=== PATIENT | male | born 1950 | race Caucasian/White ===

== ENCOUNTER → 2024-02-20 07:13 | Outpatient (REF) | payer MEDICARE, OTHER, SELFPAY | LOC: PAVMRI 07:13 | PROVIDERS: ATTENDING PHYSICIAN Orthopaedic Surgery; FAMILY PHYSICIAN Internal Medicine | DX: M25.561 Pain in right knee (principal) | CPT/HCPCS: 73721 ==

== ENCOUNTER → 2024-03-30 09:53 | Outpatient (REF) | payer MEDICARE, OTHER, SELFPAY | LOC: RAD 09:53 | PROVIDERS: ATTENDING PHYSICIAN Internal Medicine | DX: R19.00 Intra-abdominal and pelvic swelling, mass and lump, unspecified site (principal); M79.89 Other specified soft tissue disorders; I87.2 Venous insufficiency (chronic) (peripheral) | CPT/HCPCS: 74177; Q9967 ==

== ENCOUNTER → 2024-12-30 00:52 | Emergency (ER) | payer MEDICARE, OTHER, SELFPAY ==
[2024-12-30 01:06] VITALS: BP 143/75
[2024-12-30] MEDS: TYLENOL 1000 MG PO (01:22)
[2024-12-30 01:40] LABS: Hematocrit 38.1 % (39.0-52.0); Hemoglobin 12.8 g/dL (13.0-18.0); Mean Corp Hgb Conc. 33.6 g/dL (33.0-37.0); Mean Corpuscular Volume 86.6 fL (80.0-94.0); Nucleated Red Blood Cells % 0 % (-); Platelet Count 173 10^3/uL (130-400); Red Cell Dist. Width 12.8 % (11.5-14.5)
[2024-12-30 01:52] LABS: COVID-19 Antigen Positive (Negative)
[2024-12-30 02:00] LABS: ALT (SGPT) 46 U/L (0-50); AST (SGOT) 58 U/L (17-59); Albumin 4.8 g/dl (3.5-5.0); Alkaline Phosphatase 70 U/L (38-126); Blood Urea Nitrogen 12 mg/dl (9-20); Calcium 9.5 mg/dl (8.4-10.2); Carbon Dioxide 25 mmol/L (22-30); Chloride 102 mmol/L (98-107); Glucose 118 mg/dl (70-99); Potassium 4.3 mmol/L (3.5-5.1); Sodium 135 mmol/L (135-145); Total Protein 7.6 g/dl (6.3-8.2); eGFR > 60.00
[2024-12-30 05:48] VITALS: BMI 39.2
[2024-12-30 05:55] VITALS: BP 118/70
--- NOTE | 2024-12-30 06:22 | ED.GENMED ---
History of Present Illness
General
Chief Complaint: Breathing Problem
Source: patient
Exam Limitations: none
Time Seen by Provider: 12/30/24 06:18
Nursing documentation reviewed up to this point in time: agreed with
History of Present Illness
History of Present Illness:
The patient is a 74-year-old man with a past medical history of elevated cholesterol and aortic valve replacement who complains of sinus congestion and cough since yesterday. Patient reports he is able to drink and eat, however. He reports mild
shortness of breath but no chest pain. Patient was unaware he had a fever. He denies sore throat. Patient reports mild headache and bodyaches. Patient given Tylenol prior to my evaluation and states he feels much better. He denies leg pain and
leg swelling.
Past History
Past History
ED Past Medical History: Hypercholesterolemia
ED Past Surgical History: Cardiac
Social History
Tobacco: Non-smoker
Alcohol: Other
Drug: None
Personal:
Living: with family
Employment: Other
Family History
Family History: Other
Review of Systems
Review of Systems
Allergies reviewed?: Yes
All Other Systems: ROS reviewed and negative except as documented in HPI and ROS
Constitutional: Reports fatigue
EENT: Reports other (Sinus and nasal congestion)
Respiratory: Reports cough and trouble breathing
Cardiac: Reports no symptoms
ABD/GI: Reports no symptoms
: Reports no symptoms
Musculoskeletal: Reports muscle stiffness
Skin: Reports no symptoms
Neurological: Reports headache
Endocrine: Reports no symptoms
Hematologic/Lymphatic: Reports no symptoms
Psychiatric: Reports no symptoms
Phy Exam
Physical Exam
Physical Exam:
Physical Exam
General: no apparent distress, not acutely ill, patient appears nontoxic. Is conversational and smiling
Neck: supple. no meningeal signs. normal psoterior pharynx
Heart: s1/s2 regular rate and rhythm, no murmur. equal radial pulses.
Lungs: no acute respiratory distress. clear bilaterally. Speaks in full sentences. Breathing comfortably
Abdomen: normal bowel sounds. not tender. no CVAT
Neuro: alert and oriented. no focal neurological deficits
Skin: no rash
Psychiatric: well kept. interactive and cooperative
Extremities: no edema. no calf tenderness. negative homans. good distal pulses
Scores
Heart Failure Risk
Heart Failure Risk Score: Not Applicable
Sepsis
Sepsis Screening
Sepsis Assessment: Sepsis Ruled Out
Sepsis Screen
Sepsis Screen: Sepsis Ruled Out
Date: 12/30/24
Time: 06:45
Course
Orders/Labs/Results
Orders:
Orders
12/30/24 01:11
Electrocardiogram (*1) Urgent
Reason for Study: Other
Other Reason for Exam: shortness of breath
EKG- Treatment ONCE
CR Chest - 2 Views Urgent
Comment:
Reason For Exam: respiratory distress
12/30/24 01:20
Acetaminophen [Tylenol] 1,000 mg PO NOW STA
12/30/24 01:22
COVID-19 Antigen Urgent
Source: Nasal Swab
12/30/24 01:28
Complete Blood Count/With Diff Urgent
Comprehensive Metabolic Panel Urgent
Lactic Acid Urgent
Blood Culture Urgent
STEFFANIE Source: Blood/Venous
Specimen Description:
Abnormal Lab Results
12/30/24 12/30/24
01:22 01:28
RBC 4.40 L 10^6/uL
(4.70-6.10)
Hgb 12.8 L g/dL
(13.0-18.0)
Hct 38.1 L %
(39.0-52.0)
Absolute Lymphs (auto) 0.8 L 10^3/uL
(1.2-3.4)
Absolute Monos (auto) 1.4 H 10^3/uL
(0.1-0.6)
Lymphocytes % 8.7 L %
(20.5-51.1)
Monocytes % 16.3 H %
(1.7-9.3)
Glucose 118 H mg/dl
(70-99)
SARS-CoV-2 Antigen Positive A
(Negative)
12/30/24 01:28
12/30/24 01:28
Vital Signs
Initial and Last Documented VS:
Initial Vital Signs
Temp Pulse Resp BP Pulse Ox
102 F H 94 26 143/75 94
12/30/24 01:06 12/30/24 01:06 12/30/24 01:06 12/30/24 01:06 12/30/24 01:06
Last Documented Vital Signs
Temp Pulse Resp BP Pulse Ox
102 F H 94 26 143/75 97
12/30/24 01:06 12/30/24 01:06 12/30/24 01:06 12/30/24 01:06 12/30/24 06:22
MDM/Problems Addressed
Differential Diagnosis Includes:
Acute viral illness such as COVID, pneumonia, CHF, coronary artery disease
MDM/Problems Addressed:
Patient reports acute cough and shortness of breath
Acute Exacerbation and/or Progression of Chronic Illness:
Patient is acutely hypertensive, however, his hypertension is mild and there is no sign of heart failure
Acute Exacerbation and/or Progression of Chronic Illness: HTN
*Radiology
Radiology exam reviewed: preliminary read by ED provider (No acute disease)
*Pulse Oximetry
SaO2: 97
Oxygen Mode of Delivery: Room air
Patient hypoxic: no
Comment: 97% on room air
*EKG
Interpreted by ED Provider?: NA
Interpretation: abnormal
Comparison EKG: no comparison EKG present
Rate: normal
Rhythm: sinus
[place]: left axis deviation
Interval: normal interval
QRS Pattern: left vent hypertrophy
Ischemia: non-specific ST changes
*[facility] [employer] [employer] Interpretation
Rate: normal
Interpretation: normal
Rhythm: sinus
*Critical Care Note
Total Time (30-74mins, 75-104mins- exclusive of procedures): Not Applicable
Data Reviewed
Review of Other/Old Records Reveals: Testing (Normal cardiac cath 2008)
Source: patient and spouse
Patient Management
Social determinants of health affecting care: Living situation and Strong social support
Escalation/DeEscalation of care consider admission/obs:
Patient has a normal pulse ox and is able to self hydrate. He appears nontoxic and well. He is breathing completely comfortably
ED Attending Note
-
Portions of this chart may have been created with voice recognition software.� Occasional wrong word or��sound alike� substitutions may have occurred due to the inherent limitations of voice recognition software.
Discharge Plan
Departure
Patient Disposition: Home (Routine Discharge)
Date of Disposition: 12/30/24
Time of Disposition: 06:33
Patient with high blood pressure during this ER visit?: Yes
Condition: Good
Covid-19: Confirmed COVID-19
Discharge Problem:
COVID-19
Instructions: Coronavirus Home Quarantine, BLOOD PRESSURE
Prescriptions:
No Action
Gralise
600 mg PO DAILY
Magnesium
400 mg PO DAILY
aspirin
325 mg PO DAILY
dutasteride
0.5 mg PO HS
rosuvastatin
40 mg PO DAILY
Referrals:
Zahira Blakely MD [Family Provider, Internal Medicine]
Activity Restrictions/Additional Instructions:
Take 1000 mg of acetaminophen every 4-6 hours for fever. In addition to acetaminophen, please also take 400 mg of Advil/Motrin every 6-8 hours for fever/pain.
Interventions
Interventions:
*Risk Screen - Suicide Last Done: 12/30/24 01:06
*General Assessment Last Done: 12/30/24 01:06
*Neglect/Abuse Screening Last Done: 12/30/24 01:06
*ED COVID-19 Vaccine History Last Done: 12/30/24 01:06
ED- Cardiac Assessment Last Done: 12/30/24 06:06
ED- Pulmonary Assessment Last Done: 12/30/24 06:06
Discharge Date and Time
Print Language: AMHARIC
[2024-12-30 06:45] VITALS: BP 118/90
== END | disposition home or self-care (01) ==
LOC: EMR 00:52
PROVIDERS: Emergency Medicine; EMERGENCY PHYSICIAN Emergency Medicine; FAMILY PHYSICIAN Internal Medicine
DX: U07.1 COVID-19 (principal); R51.9 Headache, unspecified; Z11.52 Encounter for screening for COVID-19; E78.00 Pure hypercholesterolemia, unspecified; Z95.2 Presence of prosthetic heart valve; Z79.82 Long term (current) use of aspirin
CPT/HCPCS: 99283; 71046; 80053; 83605; 85025; 87040; 87811; 93005

== ENCOUNTER → 2025-01-23 08:49 | Outpatient (REF) | payer MEDICARE, OTHER, SELFPAY | LOC: RAD 08:49 | PROVIDERS: ATTENDING PHYSICIAN Internal Medicine | DX: R10.9 Unspecified abdominal pain (principal) | CPT/HCPCS: 76700 ==

== ENCOUNTER 2025-01-27 11:18 | Emergency (ER) | payer MEDICARE, OTHER, SELFPAY ==
[2025-01-27 11:23] VITALS: BP 127/70
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
[2025-01-27 12:43] LABS: Hematocrit 36.3 % (39.0-52.0); Hemoglobin 12.4 g/dL (13.0-18.0); Mean Corp Hgb Conc. 34.2 g/dL (33.0-37.0); Mean Corpuscular Volume 85.2 fL (80.0-94.0); Nucleated Red Blood Cells % 0 % (-); Platelet Count 185 10^3/uL (130-400); Red Cell Dist. Width 12.8 % (11.5-14.5)
[2025-01-27 12:57] LABS: Blood Urea Nitrogen 15 mg/dl (9-20); Calcium 9.4 mg/dl (8.4-10.2); Carbon Dioxide 27 mmol/L (22-30); Chloride 106 mmol/L (98-107); Estimated Creatinine Clearance 104 ml/min; Glucose 100 mg/dl (70-99); Potassium 4.6 mmol/L (3.5-5.1); Sodium 139 mmol/L (135-145); eGFR > 60.00
[2025-01-27 13:08] LABS: Troponin I < 0.012 ng/ml
== END 2025-01-27 14:13 | disposition home or self-care (01) ==
LOC: EMR 11:18
PROVIDERS: EMERGENCY PHYSICIAN Emergency Medicine; FAMILY PHYSICIAN Internal Medicine
DX: R07.89 Other chest pain (principal); E78.00 Pure hypercholesterolemia, unspecified; I25.10 Atherosclerotic heart disease of native coronary artery without angina pectoris; Z79.82 Long term (current) use of aspirin; Z95.3 Presence of xenogenic heart valve
CPT/HCPCS: 99283; 80048; 84484; 85025; 93005

== ENCOUNTER 2025-01-31 18:41 | Day surgery (SDC) | payer MEDICARE, OTHER, SELFPAY ==
[2025-01-31] VITALS (8 sets, daily range): BP systolic 108–140; BP diastolic 63–86; BMI 28.1; BMI 30.5
[2025-01-31] MEDS: DILAUDID 0.5 MG IV (13:44)
--- NOTE | 2025-01-31 13:45 | ED.GENMED ---
History of Present Illness
General
Chief Complaint: Abdominal Symptoms
Source: patient
Exam Limitations: none
Time Seen by Provider: 01/31/25 12:59
Nursing documentation reviewed up to this point in time: agreed with
History of Present Illness
History of Present Illness:
74-year-old male with a past medical history of hyperlipidemia, aortic stenosis status post aortic valve replacement who presents to the emergency room for evaluation of right groin pain. Patient reports that he has had a right inguinal hernia for
years. He says that over the past few days it has become increasingly large and painful which prompted ER visit. He denies any nausea or vomiting. He denies any fevers or chills. He has been able to have a bowel movement today. He says that he
had a prior hernia repair on the left side but right hernia had been very small until recently.
Past History
Past History
ED Past Medical History: Hypercholesterolemia
ED Past Surgical History: Cardiac
Social History
Tobacco: Non-smoker
Alcohol: Other
Drug: None
Personal:
Living: with family
Employment: Other
Family History
Family History: Other
Review of Systems
Review of Systems
All Other Systems: ROS reviewed and negative except as documented in HPI and ROS
Constitutional: Denies fever
Respiratory: Denies trouble breathing
Cardiac: Denies chest pain
ABD/GI: Denies abdominal pain, nausea, vomiting or constipated
Musculoskeletal: Reports other (Groin pain and swelling)
Neurological: Denies headache
Phy Exam
Physical Exam
Physical Exam:
General: Awake, alert, oriented x3; mildly uncomfortable but nontoxic
Head: Normocephalic, atraumatic
Eyes: Conjunctiva normal, sclera anicteric
Throat: Airway intact, handling secretions
Neck: Trachea midline, supple without meningismus
Lungs: Breathing comfortably no distress, no tachypnea or hypoxia
Heart: Regular rate
Abd: Soft, non distended, nontender
: Patient has large right inguinal hernia extending from the inguinal crease into the right scrotum�the hernia is very firm and tender to the touch but no erythema or overlying skin changes�unable to reduce hernia at bedside
Neuro: No gross deficits
Extremities: Warm and well-perfused
Scores
Heart Failure Risk
Heart Failure Risk Score: Not Applicable
Heart Score for Chest Pain Patients
STEMI patient?: Not applicable
Withdrawal Assessment of Alcohol
Withdrawal Assessment Completed?: Not applicable
Course
Orders/Labs/Results
Orders:
Orders
01/31/25 13:09
HYDROmorphone [Dilaudid] 0.5 mg IV NOW STA
01/31/25 13:45
CT Abd/pelvis W Iv Cont Urgent
Comment:
Reason For Exam: right groin pain and swelling
SURGICAL CONSULT Urgent
Consulting Provider: Gerard Bryant
Was physician already notified: Yes
01/31/25 13:46
Complete Blood Count/With Diff Urgent
Comprehensive Metabolic Panel Urgent
Lactate Level [Lactic Acid] Urgent
PTT Urgent
Prothrombin Time Urgent
01/31/25 Dinner
NPO
Allow oral meds: No
Allow clear liquids: No
NPO with Ice Chips: No
01/31/25 17:57
Bupivacaine 0.25%Pf/Epinephrin [Sensorcaine-Epi 0.25%-0.0005] 30 ml .ROUTE .STK-MED ONE
01/31/25 18:17
Lidocaine 2% Mpf [Xylocaine Mpf 2%] 100 mg .ROUTE .STK-MED ONE
Propofol [Diprivan] 20 ml .ROUTE .STK-MED
Rocuronium [place] [Rocuronium] 50 mg .ROUTE .STK-MED ONE
01/31/25 18:20
Fentanyl Citrate/Pf [Sublimaze] 100 mcg .ROUTE .STK-MED ONE
01/31/25 18:21
Dexamethasone Sod Phosphate [Decadron] 20 mg .ROUTE .STK-MED ONE
Ondansetron Injectable [Zofran] 4 mg .ROUTE .STK-MED ONE
Abnormal Lab Results
01/31/25
13:46
RBC 3.65 L 10^6/uL
(4.70-6.10)
Hgb 10.5 L g/dL
(13.0-18.0)
Hct 31.1 L %
(39.0-52.0)
Absolute Neuts (auto) 6.8 H 10^3/uL
(1.4-6.5)
Absolute Monos (auto) 1.3 H 10^3/uL
(0.1-0.6)
Lymphocytes % 15.0 L %
(20.5-51.1)
Monocytes % 13.1 H %
(1.7-9.3)
Glucose 113 H mg/dl
(70-99)
01/31/25 13:46
01/31/25 13:46
Vital Signs
Initial and Last Documented VS:
Initial Vital Signs
Temp Pulse Resp BP Pulse Ox
37.0 C 85 20 140/68 96
01/31/25 11:57 01/31/25 11:57 01/31/25 11:57 01/31/25 11:57 01/31/25 11:57
Last Documented Vital Signs
Temp Pulse Resp BP Pulse Ox
36.7 C 81 20 138/86 98
01/31/25 17:41 01/31/25 17:41 01/31/25 17:41 01/31/25 17:41 01/31/25 17:41
MDM/Problems Addressed
Differential Diagnosis Includes:
Inguinal hernia, femoral hernia
MDM/Problems Addressed:
74-year-old male presents to the emergency room with incarcerated right inguinal hernia. Vitals and exam as above. We placed ice pack on the area and provided IV pain medication and attempted reduction at bedside unsuccessfully. Plan to place an
IV check labs including CBC, CMP, lactate. Will check CT abdomen pelvis. Case discussed with general surgery for consultation.
Labs reviewed: CBC shows marginal anemia, CMP no clinically significant abnormalities. Lactate 1.3. CT shows large inguinal hernia containing sigmoid colon with inflammatory stranding. Radiology report read is concerning for possible
strangulation. Patient remains well-appearing with stable vital signs. Updated general surgery.
Surgery evaluated, plan for OR today. Continue to monitor pending OR.
*Radiology
Radiology exam reviewed: radiology read reviewed
*Pulse Oximetry
SaO2: 96
Oxygen Mode of Delivery: Room air
Patient hypoxic: no (96%)
*Critical Care Note
Total Time (30-74mins, 75-104mins- exclusive of procedures): Not Applicable
Data Reviewed
Review of Other/Old Records Reveals: Labs, Records and Radiology Studies (Hernia present on prior CT)
Source: patient and records
Patient Management
Discussion with other providers: [employer] (Discussed with general surgery)
Escalation/DeEscalation of care consider admission/obs:
Admission indicated
ED Attending Note
-
Portions of this chart may have been created with voice recognition software.� Occasional wrong word or��sound alike� substitutions may have occurred due to the inherent limitations of voice recognition software.
Discharge Plan
Departure
Patient Disposition: Admit
Date of Disposition: 01/31/25
Time of Disposition: 16:00
Admit to doctor: Annette
Presentation/result/management discussed w/ accepting MD/DO: Surgery
Discharge Problem:
Incarcerated inguinal hernia
Interventions
Interventions:
*Risk Screen - Suicide Last Done: 01/31/25 11:57
*General Assessment Last Done: 01/31/25 11:57
*Neglect/Abuse Screening Last Done: 01/31/25 11:57
*ED- Fall Risk Assessment Last Done: 01/31/25 12:44
*ED COVID-19 Vaccine History Last Done: 01/31/25 16:15
*Nursing Disposition Last Done: 01/31/25 18:40
ZS-[id number]-Qrmcuvnbci Assessment Last Done: 01/31/25 12:44
Discharge Date and Time
Discharge Date/Time: 01/31/25 18:41
[2025-01-31 13:58] LABS: Hematocrit 31.1 % (39.0-52.0); Hemoglobin 10.5 g/dL (13.0-18.0); Mean Corp Hgb Conc. 33.8 g/dL (33.0-37.0); Mean Corpuscular Volume 85.2 fL (80.0-94.0); Nucleated Red Blood Cells % 0 % (-); Platelet Count 131 10^3/uL (130-400); Red Cell Dist. Width 12.5 % (11.5-14.5)
[2025-01-31 14:12] LABS: INR 0.99; PT 13.5 Sec (11.4-14.6)
[2025-01-31 14:13] LABS: APTT 31.0 Sec (23.4-35.0)
[2025-01-31 14:22] LABS: ALT (SGPT) 23 U/L (0-50); AST (SGOT) 37 U/L (17-59); Albumin 4.0 g/dl (3.5-5.0); Alkaline Phosphatase 63 U/L (38-126); Blood Urea Nitrogen 13 mg/dl (9-20); Calcium 8.7 mg/dl (8.4-10.2); Carbon Dioxide 26 mmol/L (22-30); Chloride 105 mmol/L (98-107); Glucose 113 mg/dl (70-99); Potassium 4.6 mmol/L (3.5-5.1); Sodium 137 mmol/L (135-145); Total Protein 6.6 g/dl (6.3-8.2); eGFR > 60.00
--- NOTE | 2025-01-31 19:06 | HPS.HSE ---
Addendum entered and electronically signed by Gerard Bryant MD 01/31/25 19:15:
Additional medical history includes BPH, restless leg and sleep apnea
Original Note:
Family Physician
-
Family Physician: Zahira Blakely
Chief Complaint
-
Right inguinal hernia pain
History of Present Illness
The patient is a 74-year-old male who has had a longstanding history of a right inguinal hernia which previously was minimally symptomatic. Over the past few days his right inguinal hernia enlarged in size and became painful. It is unable to be
reduced. He has not had any nausea or vomiting. His appetite has been a bit reduced. He states that he has been having bowel movements even through this morning.
Medical History
Past Medical History
Past Medical History: Reports Other (History of CAD, hypercholesterolemia)
Past Surgical History: Reports Other (Left inguinal hernia repair. Repair of bicuspid aortic valve)
Social History
Tobacco: Non-smoker
Personal:
Living: With Family
Family History
Family History: Not pertinent
Allergies / Home Medications
Allergies reflects when Allergies were last updated in [facility].
Home Medications with original date entered in [facility]
Allergy/Medication List:
Allergies
Allergy/AdvReac Type Severity Reaction Status Date / Time
No Known Allergies Allergy Unverified 01/27/25 11:23
�Medication �Instructions �Recorded �Confirmed �Type
aspirin 325 mg tablet 325 mg PO DAILY 12/30/24 01/31/25 History
dutasteride 0.5 mg capsule 0.5 mg PO QPM 12/30/24 01/31/25 History
gabapentin 600 mg tablet,extended 600 mg PO QPM 12/30/24 01/31/25 History
release 24 hr (Gralise)
magnesium oxide 400 mg PO BID 12/30/24 01/31/25 History
rosuvastatin 40 mg tablet (Crestor) 40 mg PO HS 12/30/24 01/31/25 History
cholecalciferol (vitamin D3) 25 25 mcg PO DAILY 01/31/25 01/31/25 History
mcg (1,000 unit) tablet (Vitamin
D3)
cyanocobalamin (vitamin B-12) 1,000 mcg PO DAILY 01/31/25 01/31/25 History
1,000 mcg tablet
ezetimibe 10 mg tablet (Zetia) 10 mg PO QPM 01/31/25 01/31/25 History
ropinirole 1 mg tablet 1 mg PO HS 01/31/25 01/31/25 History
therapeutic multivitamin 1 tab PO DAILY 01/31/25 01/31/25 History
Review of Systems
-
History Source: Patient
A 12 point ROS was completed and negative except as noted: Yes
Constitutional: Reports No Symptoms
Physical Exam
Vital Signs
Vital Signs
Temp Pulse Resp BP Pulse Ox
98.1 F 81 20 138/86 98
01/31/25 17:41 01/31/25 17:41 01/31/25 17:41 01/31/25 17:41 01/31/25 17:41
Physical Exam
General: Well Developed, Well Nourished, No Apparent Distress and Conversant
HEENT: NormoCephalic, Anicteric and Moist mucous membranes
Respiratory: Non Labored Respirations
Cardiac: Regular Rhythm
GI: Soft, Non Tender, Non Distended and Other (Incarcerated right inguinal hernia unable to be reduced and tender on palpation. No erythema.)
Neuro: AO x 3
Laboratory Results
-
01/31/25 13:46
01/31/25 13:46
Laboratory Results
PT 13.5 Sec (11.4-14.6) 01/31/25 13:46
INR 0.99 01/31/25 13:46
APTT 31.0 Sec (23.4-35.0) 01/31/25 13:46
Lactic Acid 1.3 mmol/L (0.7-2.0) 01/31/25 13:46
Total Bilirubin 0.8 mg/dl (0.2-1.3) 01/31/25 13:46
AST 37 U/L (17-59) 01/31/25 13:46
ALT 23 U/L (0-50) 01/31/25 13:46
Alkaline Phosphatase 63 U/L (38-126) 01/31/25 13:46
Lipase Cancelled 01/31/25 12:38
Data Reviewed
-
CT Scan: Image Personally Visualized and interpreted, Report Reviewed by me and Discussed with Patient
Impression/Plan
-
IMPRESSION: 74-year-old male presenting with an acutely incarcerated right inguinal hernia containing sigmoid colon with possible associated obstruction.
Hernia unable to be reduced at bedside and is quite tender on palpation. Given the potential risk for progression leading to strangulation or obstruction we discussed indications for rather urgent operative correction. Patient in agreement to
proceed. We discussed various operative approaches and options and have elected to proceed with a robotic assisted laparoscopic repair of his incarcerated right inguinal hernia with mesh assuming bowel viability with the operative procedure. The
procedure was reviewed in detail with the patient preoperatively obtaining an informed consent
PLAN: OR for surgery as outlined above
--- NOTE | 2025-01-31 19:12 | W.SUR.PREOP ---
Pre-Operative Surgical Note
-
I have examined this patient prior to the performance of the scheduled procedure.
The patient's condition is unchanged from the time of the current History and
Physical and the patient is able to undergo the scheduled procedure.
--- NOTE | 2025-01-31 21:11 | W.IMMPOSTOP ---
Addendum entered and electronically signed by Gerard Bryant MD 02/04/25 16:32:
#[id number]
Original Note:
Surgical Immed Post Op Note
-
Primary Surgeon: Gerard Bryant MD
Assisting Surgeon: None
Pre-op Diagnosis: Incarcerated right inguinal hernia with obstruction
Post-op Diagnosis: Incarcerated right inguinal hernia with obstruction
Procedure Performed: Robotic assisted laparoscopic repair incarcerated right inguinal hernia with mesh; 3D max mid weight extra-large
Anesthesia Type: GETA +0.25% Marcaine with epi
Specimen / Cultures: None
Estimated Blood Loss: 20 mL
Complications: None immediate
Operative Findings: Large right indirect inguinal hernia with incarcerated sigmoid colon. Colon reduced after induction of anesthesia with firm but careful manual pressure. No evidence of sigmoid colon ischemia/strangulation. Subsequent
transabdominal preperitoneal repair of right indirect inguinal hernia. 3D max large mid weight extra-large mesh secured to Rajeev's ligament with 2-0 Vicryl stitch x 2. Hernia sac fully reduced and excised/discarded. Peritoneal flap closed with
2-0 Monocryl STRATAFIX spiral.
Patient's updated postoperatively in the waiting area
[2025-01-31] MEDS: NSS 1000 IV (23:22)
[2025-01-31] MEDS: REQUIP 1 MG PO (23:23)
[2025-01-31] MEDS: PROSCAR 5 MG PO (23:23)
--- NOTE | 2025-02-01 00:20 | PTCARENOTE ---
Pt arrived to unit from PACU at 2220. Pt arrived on 3L O2. Pt has hx of JOHN but does not use CPAP. VSS, Pt AAOx3, combative post anesthesia, pt is now drowsy, calm & cooperative. 3 Lap sites & 1 Puncture in abdomen- See Wound Management
Intervention. Pt reports pain '3/', does not want pain medicine at this time. Plan of care for tonight discussed with pt, at bedside. Pt is agreeable to plan of care. Pt oriented to unit, call mueller within reach, pt states no further needs at
this time.
[2025-02-01 03:35] VITALS: BP 99/45
[2025-02-01] MEDS: TYLENOL 650 MG PO (06:45)
[2025-02-01 07:00] VITALS: BP 99/51
[2025-02-01] MEDS: NSS IV (08:53)
[2025-02-01] MEDS: ASPIRIN 325 MG PO (09:09)
[2025-02-01] MEDS: VITAMIN B-12 1000 MCG PO (09:09)
[2025-02-01] MEDS: MAG-TAB SR 84 MG PO (09:09)
[2025-02-01] MEDS: VITAMIN D3 (cholecalciferol) 25 MCG PO (09:09)
[2025-02-01 11:19] VITALS: BP 108/56
--- NOTE | 2025-02-01 11:36 | W.PN.GS2 ---
Addendum entered and electronically signed by Kannan Franco MD 02/01/25 12:37:
Patient seen and examined. With assessment plan as documented below.
No major complaints. Mild RIGHT groin soreness, pain overall well-controlled. No nausea or vomiting. Passing flatus, no BM. No fevers.
Gen: NAD
Abd: soft, mild RIGHT groin tenderness, ND, non-peritoneal, incisions c/d/i - no erythema, ecchymosis, or drainage, no palpable RIGHT inguinal hernia or significant seroma
Patient is a 74 yo M who presented yesterday with incarcerated R inguinal hernia with resultant LBO now POD #1 RAL R inguinal hernia repair with mesh
Afebrile. VSS. BP low normal. Weaned off O2 this am
No N/V, passing flatus
Tender to groin site, but improved from previous
Recovering well. No major postoperative concerns. Okay for discharge from hospital if tolerating diet and pain well-controlled.
Plan:
-- Advance to regular diet
-- Miralax daily to keep stools soft/avoid straining
-- Analgesics prn, ice packs to groin
-- D/C IVF
-- OOB/ambulate
Tentative d/c later today pending good pain control and PO tolerance
Original Note:
Today's Communication / Plan
-
dispo planning
Assessment / Plan
-
74 yo male who presented yesterday with incarcerated right inguinal hernia with resultant LBO now POD #1 RAL r inguinal hernia repair with mesh
Afebrile. VSS. BP low normal. Weaned off O2 this am
No N/V, passing flatus
Tender to groin site, but improved from previous
Plan:
Advance to regular diet
Miralax daily to keep stools soft/avoid straining
Analgesics prn, ice packs to groin
D/C IVF
OOB/ambulate
Tentative d/c later today pending good pain control and PO tolerance
Subjective Data
-
Date of Service: February 01, 2025
Pt seen and examined at bedside with Dr. Franco. Denies n/v. Passing flatus. Sore to right groin, but pain improved from preop. Denies sob.
Objective Data
-
Intake and Output
01/31/25 02/01/25 02/02/25
06:59 06:59 06:59
Intake Total 2054
Output Total 2174
Balance -120 / -120
Intake:
Oral fluids 480 / 480
IV fluids (Total) 1574
Output:
Urine, Voided 2174
Vital Signs
Temp Pulse Resp BP Pulse Ox
98 F 83 16 108/56 96
02/01/25 11:19 02/01/25 11:19 02/01/25 11:19 02/01/25 11:19 02/01/25 11:19
Lab Results
01/31/25 13:46
01/31/25 13:46
Calcium 8.7 mg/dl (8.4-10.2) 01/31/25 13:46
Total Bilirubin 0.8 mg/dl (0.2-1.3) 01/31/25 13:46
AST 37 U/L (17-59) 01/31/25 13:46
ALT 23 U/L (0-50) 01/31/25 13:46
Alkaline Phosphatase 63 U/L (38-126) 01/31/25 13:46
Total Protein 6.6 g/dl (6.3-8.2) 01/31/25 13:46
Albumin 4.0 g/dl (3.5-5.0) 01/31/25 13:46
Physical Exam
-
NAD
ABD soft, nd, right groin tender
incisions well approximated with intact glue, no erythema
--- NOTE | 2025-02-01 12:05 | CM ---
Addendum entered by Mario Steinberg 02/01/25 15:26:
Discharge order noted. Pt is aware and he stated his spouse will transport home.
No after care VN services indicated.
Plan: home no needs. Spouse to transport.
Original Note:
CM following re: discharge planning.
Reviewed pt's chart, met with pt.
Pt is a 74 year old male, admitted with SDC status and primary dx of Right inguinal hernia pain. POD #1 RAL r inguinal hernia repair with mesh, continue supportive care.
Pt reports he lives with spouse and a son in a 2SH, 1 step to enter. 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 No DME, VN or SNF history.
PCP: Zahira braxton
Pharmacy: [facility]
D/c plan: home with anticipated no needs. Family to transport at discharge.
[2025-02-01 13:27] LABS: Hepatitis C Antibody Negative (Negative)
--- NOTE | 2025-02-01 15:19 | W.DS.TRANS ---
DC Summary - Egg Candler
-
Discharge Instructions:
Discharge Diagnosis/Procedures Incarcerated right inguinal hernia with
obstruction. Robotic assisted laparoscopic
repair of right inguinal hernia with mesh
Diet As tolerated,Regular
Additional Diets Smaller meals initially after surgery as
abdominal bloating and distention are common for
the first few days
Activity No strenuous activity
Additional Activity Do not lift over 15-20lbs for the next 4 -6
weeks, after that you can begin gradually
increasing activity
Driving Restrictions No driving for 24 hours
Bathing Restrictions OK to Shower
Wound Care Glue at surgical sites typically peels off in 2
to 3 weeks
Instructions:
Stand-Alone Forms:
Changes to Home Medications: No
Discharge Medications:
DC Medications w/original date entered in [facility]
aspirin 325 mg tablet 325 mg PO DAILY 12/30/24
dutasteride 0.5 mg capsule 0.5 mg PO QPM 12/30/24
gabapentin 600 mg tablet,extended release 24 hr (Gralise) 600 mg PO QPM 12/30/24
magnesium oxide 400 mg PO BID 12/30/24
rosuvastatin 40 mg tablet (Crestor) 40 mg PO HS 12/30/24
cholecalciferol (vitamin D3) 25 mcg (1,000 unit) tablet (Vitamin D3) 25 mcg PO DAILY 01/31/25
cyanocobalamin (vitamin B-12) 1,000 mcg tablet 1,000 mcg PO DAILY 01/31/25
ezetimibe 10 mg tablet (Zetia) 10 mg PO QPM 01/31/25
ropinirole 1 mg tablet 1 mg PO HS 01/31/25
therapeutic multivitamin 1 tab PO DAILY 01/31/25
acetaminophen 325 mg tablet 650 mg (2 x 325 mg) PO Q4HPRN PRN mild pain #1 tab 02/01/25
ibuprofen 200 mg tablet 400 - 600 mg (2 - 3 x 200 mg) PO Q6HPRN PRN moderate pain #1 tab 02/01/25
oxycodone 5 mg tablet 5 mg PO Q4HPRN PRN breakthrough/severe pain #15 tabs 02/01/25
polyethylene glycol 3350 17 gram oral powder packet 17 grams PO DAILYPRN PRN constipation #1 packet 02/01/25
Home Medication Changes
Pending Results: No
[2025-02-01 15:26] VITALS: BP 101/60
== END 2025-02-01 16:44 | disposition home or self-care (01) ==
LOC: SDS 18:41
PROVIDERS: ATTENDING PHYSICIAN Surgery; EMERGENCY PHYSICIAN Emergency Medicine; FAMILY PHYSICIAN Internal Medicine
DX: K40.30 Unilateral inguinal hernia, with obstruction, without gangrene, not specified as recurrent (principal)
CPT/HCPCS: 49650; 74177; 80053; 83605; 85025; 85610; 85730; 86803; 96374; 99285; C1781; Q9967

== ENCOUNTER 2025-05-10 06:15 | Day surgery (SDC) | payer MEDICARE, OTHER, SELFPAY | END 2025-05-10 10:23 | disposition home or self-care (01) | LOC: GI 06:15 | PROVIDERS: ATTENDING PHYSICIAN Internal Medicine Gastroenterology; FAMILY PHYSICIAN Internal Medicine | DX: Z12.11 Encounter for screening for malignant neoplasm of colon (principal); K64.8 Other hemorrhoids; K57.30 Diverticulosis of large intestine without perforation or abscess without bleeding; Z86.0100 Personal history of colon polyps, unspecified | CPT/HCPCS: G0105 ==

== ENCOUNTER 2025-06-18 | Emergency (ER) | payer MEDICARE, OTHER, SELFPAY ==
[2025-06-18 00:01] VITALS: BMI 26.6
[2025-06-18 00:11] VITALS: BP 157/82
[2025-06-18 01:43] VITALS: BP 136/78
[2025-06-18 01:44] LABS: Hematocrit 37.3 % (39.0-52.0); Hemoglobin 12.7 g/dL (13.0-18.0); Mean Corp Hgb Conc. 34.0 g/dL (33.0-37.0); Mean Corpuscular Volume 86.5 fL (80.0-94.0); Nucleated Red Blood Cells % 0 % (-); Platelet Count 191 10^3/uL (130-400); Red Cell Dist. Width 12.3 % (11.5-14.5)
--- NOTE | 2025-06-18 01:58 | ED.GENMED ---
History of Present Illness
General
Chief Complaint: Chest Pain
Source: patient
Time Seen by Provider: 06/18/25 01:51
History of Present Illness
History of Present Illness:
75-year-old male presents emergency room complaining of epigastric pain. Symptoms began about 7:30 PM. The pain is constant and is located just under his sternum. Nothing seems to make pain better or worse. He denies associated shortness of
breath, nausea or diaphoresis. Movement does not change the pain. Patient denies smoking or alcohol use. He denies any fever or chills.
Past History
Past History
ED Past Medical History: Hypercholesterolemia
ED Past Surgical History: Cardiac
Social History
Tobacco: Non-smoker
Alcohol: Other
Drug: None
Personal:
Living: with family
Employment: Other
Family History
Family History: Other
Phy Exam
Physical Exam
Physical Exam:
General: Awake, Alert, Oriented X3. No acute distress.
Vitals: unremarkable
Head: Atraumatic
Eyes: Pupils equal, EOMI
Throat: Airway intact, no exudates
Neck: Trachea midline
Lungs: Clear and equal b/l
Heart: Regular rate, no murmurs
Abd: Soft, mild epigastric tenderness to palpation, No pulsatile mass
Neuro: Nonfocal
Skin: Warm, dry, no rash
Extremities: pulses equal b/l, no edema
Scores
Heart Score for Chest Pain Patients
STEMI patient?: No
History: Slightly or Non-Suspicious
ECG: Nonspecific Repolarization
Age: >/= 65 years
Risk Factors: 1 or 2 Risk Factors
Troponin: </= Normal Limit
Heart Score for Chest Pain Patients: 4
Heart Score Risk: 20.3% MACE over next 6 weeks
Course
Orders/Labs/Results
Orders:
Orders
06/18/25 00:11
Electrocardiogram (*1) Urgent
Reason for Study: Chest Pain
Cardiac Monitoring- Treatment ONCE
EKG- Treatment ONCE
IV Insert/Care/Rem.- Treatment PRN
O2 Therapy [RESP] Urgent
Titrate/Wean O2 to maintain O2 sat greater than (%): 90
Special Instructions: Maintain sats >/=90%
Pulse Ox/spot Check [RESP] Urgent
Quantity: 1
Special Instructions: ON ROOM AIR
06/18/25 01:36
Comprehensive Metabolic Panel Urgent
Lipase Urgent
Troponin I Urgent
06/18/25 01:37
Complete Blood Count/With Diff Urgent
06/18/25 02:02
CR Chest - 2 Views Urgent
Comment:
Reason For Exam: Epigastric/chest pain
06/18/25 02:35
Electrocardiogram (*1) Urgent
Reason for Study: Chest Pain
EKG- Treatment ONCE
06/18/25 02:36
US Abdomen Complete/Upper Urgent
Comment:
Reason For Exam: epigastric/ruq pain
06/18/25 03:51
Troponin I Urgent
Abnormal Lab Results
06/18/25
01:37
RBC 4.31 L 10^6/uL
(4.70-6.10)
Hgb 12.7 L g/dL
(13.0-18.0)
Hct 37.3 L %
(39.0-52.0)
Absolute Monos (auto) 0.9 H 10^3/uL
(0.1-0.6)
Monocytes % 10.3 H %
(1.7-9.3)
06/18/25 01:37
06/18/25 01:36
Vital Signs
Initial and Last Documented VS:
Initial Vital Signs
Temp Pulse Resp BP Pulse Ox
97.8 F 66 18 157/82 97
06/18/25 00:11 06/18/25 00:11 06/18/25 00:11 06/18/25 00:11 06/18/25 00:11
Last Documented Vital Signs
Temp Pulse Resp BP Pulse Ox
97.8 F 63 14 147/76 97
06/18/25 00:11 06/18/25 05:13 06/18/25 05:13 06/18/25 05:13 06/18/25 05:13
MDM/Problems Addressed
Differential Diagnosis Includes:
ACS, gastritis, biliary colic, GERD
MDM/Problems Addressed:
Patient presents with epigastric pain. From a cardiac standpoint his troponin is negative x 2 unit no acute UTI was noted his EKG. Ultrasound obtained shows gallstones with some gallbladder distention but no gallbladder wall thickening or
pericholecystic fluid. Patient's symptoms have improved significantly. Suspect biliary colic. Patient comfortable being discharged. I given him contact information for Dr. Ravi Duval who is on-call for surgery. Recommend he call the office
to schedule an outpatient follow-up with them.
*Radiology
Radiology exam reviewed: radiology read reviewed
*Pulse Oximetry
SaO2: 97
Oxygen Mode of Delivery: Room air
Patient hypoxic: no
*EKG
Interpreted by ED Provider?: Yes
Comparison EKG: changes noted (Nonspecific changes were present on previous EKG but lateral leads may have a bit more T wave inversion)
Heart Rate: 60
Rate: normal
Rhythm: sinus
Belding: normal axis
Interval: normal interval
QRS Pattern: normal QRS
Ischemia: non-specific ST changes
*Piano Regulator Interpretation
Rate: normal
Interpretation: normal
Rhythm: sinus
*Critical Care Note
Total Time (30-74mins, 75-104mins- exclusive of procedures): Not Applicable
Update Note
Update Note:
Repeat EKG unchanged from the first
ED Attending Note
-
Portions of this chart may have been created with voice recognition software.� Occasional wrong word or��sound alike� substitutions may have occurred due to the inherent limitations of voice recognition software.
Discharge Plan
Departure
Patient Disposition: Home (Routine Discharge)
Date of Disposition: 06/18/25
Time of Disposition: 04:58
Patient with high blood pressure during this ER visit?: No
Condition: Good
Discharge Problem:
Biliary colic, Abdominal pain
Instructions: Gallstones - ED (DC)
Prescriptions:
No Action
aspirin 325 mg Tablet
325 mg PO DAILY
dutasteride 0.5 mg Capsule
0.5 mg PO QPM
rosuvastatin [Crestor] 40 mg Tablet
40 mg PO HS
gabapentin [Gralise] 600 mg Tablet Extended Release 24 Hr
600 mg PO QPM
magnesium oxide 400 mg magnesium Tablet
400 mg PO BID
ropinirole 1 mg Tablet
1 mg PO HS
cyanocobalamin (vitamin B-12) 1,000 mcg Tablet
1,000 mcg PO DAILY
therapeutic multivitamin Tablet
1 tab PO DAILY
ezetimibe [Zetia] 10 mg Tablet
10 mg PO QPM
cholecalciferol (vitamin D3) [Vitamin D3] 25 mcg (1,000 unit) Tablet
25 mcg PO DAILY
acetaminophen [acetaminophen] 325 mg tablet
650 mg PO Q4HPRN PRN (Reason: mild pain) Qty: 1 0RF
polyethylene glycol 3350 [polyethylene glycol 3350] 17 gram powder in packet
17 grams PO DAILYPRN PRN (Reason: constipation) Qty: 1 0RF
ibuprofen 200 mg tablet
400 - 600 mg PO Q6HPRN PRN (Reason: moderate pain) Qty: 1 0RF
oxycodone 5 mg tablet
5 mg PO Q4HPRN PRN (Reason: breakthrough/severe pain) Qty: 15 0RF
Referrals:
Zahira Blakely MD [Family Provider, Internal Medicine]
Ravi Grace MD [Active, Surgical]
Interventions
Interventions:
*General Assessment Last Done: 06/18/25 04:00
*Neglect/Abuse Screening Last Done: 06/18/25 00:11
*ED COVID-19 Vaccine History Last Done: 06/18/25 05:11
*ED Influenza Vaccine History Last Done: 06/18/25 00:11
[facility] Fall Risk Assessment Tool Last Done: 06/18/25 00:01
*Risk Screen - Suicide (C-SSRS) Last Done: 06/18/25 00:13
*Nursing Disposition Last Done: 06/18/25 05:13
ED- Cardiac Assessment Last Done: 06/18/25 01:59
Discharge Date and Time
Discharge Date/Time: 06/18/25 05:15
Print Language: COMORAN
[2025-06-18 02:00] VITALS: BP 132/78
[2025-06-18 02:02] LABS: ALT (SGPT) 33 U/L (0-50); AST (SGOT) 52 U/L (17-59); Albumin 4.3 g/dl (3.5-5.0); Alkaline Phosphatase 83 U/L (38-126); Blood Urea Nitrogen 15 mg/dl (9-20); Calcium 9.1 mg/dl (8.4-10.2); Carbon Dioxide 26 mmol/L (22-30); Chloride 105 mmol/L (98-107); Glucose 95 mg/dl (70-99); Lipase 77 U/L (23-300); Potassium 4.4 mmol/L (3.5-5.1); Sodium 138 mmol/L (135-145); Total Protein 7.3 g/dl (6.3-8.2); eGFR > 60.00
[2025-06-18 02:12] LABS: Troponin I < 0.012 ng/ml
[2025-06-18 03:19] VITALS: BP 141/88
[2025-06-18 04:37] LABS: Troponin I < 0.012 ng/ml
[2025-06-18 05:04] VITALS: BP 147/76
[2025-06-18 05:13] VITALS: BP 147/76
== END 2025-06-18 05:15 | disposition home or self-care (01) ==
LOC: EMR
PROVIDERS: EMERGENCY PHYSICIAN Emergency Medicine; FAMILY PHYSICIAN Internal Medicine
DX: K80.70 Calculus of gallbladder and bile duct without cholecystitis without obstruction (principal); E78.00 Pure hypercholesterolemia, unspecified
CPT/HCPCS: 99284; 71046; 76700; 80053; 83690; 84484; 85025; 93005